=== PATIENT | female | born 1990 | race Caucasian/White ===

== ENCOUNTER 2017-09-25 15:41 | Emergency (ER) | payer OTHER ==
--- NOTE | 2017-09-25 16:06 | ED.PDOC ---
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 She had some abdominal pain associated with the bleeding that has since resolved. She said there was a quarter size clot in the blood. No other complaints. She had no complications with her first . Timing/Duration: 1 hour Severity: mild Improving Factors: nothing Worsening Factors: nothing Associated Symptoms: denies symptoms Allergies/Adverse Reactions: Allergies NO KNOWN ALLERGY Allergy (Verified 09/25/17 16:00) Review of Systems - Review of Systems Constitutional: States: no symptoms reported EENTM: States: no symptoms reported Respiratory: States: no symptoms reported Cardiology: States: no symptoms reported Gastrointestinal/Abdominal: States: no symptoms reported Genitourinary: States: see HPI Musculoskeletal: States: no symptoms reported Skin: States: no symptoms reported Neurological: States: no symptoms reported Endocrine: States: no symptoms reported Hematologic/Lymphatic: States: no symptoms reported Past Medical History (General) - Patient Medical History Hx Asthma: No Hx of COPD: No Hx Cardiac Disorders: No Hx Congestive Heart Failure: No Hx Hypertension: No Surgical History: no surgical history Physical Exam - Physical Exam General Appearance: Alert Ears, Nose, Throat: normal ENT inspection Neck: non-tender, full range of motion, supple Respiratory: lungs clear Cardiovascular/Chest: normal peripheral pulses, regular rate, rhythm, no edema Gastrointestinal/Abdominal: normal bowel sounds, non tender, soft, other - Gravid, uterus 25 cm above pelvic symphysis Back Exam: no CVA tenderness Extremity: normal range of motion, non-tender, normal inspection 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 Dr. Majano in [place] is the patient's OB. I spoke with Dr. Patel, who is the OB brand communications manager for Dr. Majano's group. The instructions that she gave were vaginal rest and light activity with follow up at her scheduled appointment in one week. Care instructions were given. Questions were elicited and answered. Patient voiced understanding and agreement with the plan. Departure - Departure Clinical Impression: Vaginal bleeding in Disposition: Discharge to Home or Self Care Condition: Good Departure Forms: ED Discharge - Pt. Copy, Patient Portal Self Enrollment Diet: resume usual diet Activity: no exercise, other - Light activity. Vaginal rest. Additional Instructions: Engage only in light activity. Vaginal rest. Return to the E.R. pain and bleeding happen again. Go to your scheduled appointment with your OB on Monday.
[2017-09-25 16:33] VITALS: TEMP 99.3; O2SAT 97
[2017-09-25 17:06] VITALS: BP 104/71
--- NOTE | 2017-09-25 17:19 | US ---
EXAM DESCRIPTION: OB , limited CLINICAL HISTORY: 27 years Female vaginal bleeding COMPARISON: None. TECHNIQUE: Transabdominal real-time, nicholson scale imaging performed to evaluate the pelvis. FINDINGS: There is a single viable intrauterine in breech presentation. movement is visualized and there are positive cardiac heart tones at 158 bpm. BPD 5.9 cm 24 weeks one day. HC 22 cm 24 weeks zero days. A.c. 20.3 cm 25 weeks zero days. FL 4.08 cm 23 weeks two days. Estimated composite gestational age is 24 weeks one day. Estimated due date is 01/14/2018. Estimated weight 668.3 g which is at the 49th percentile. Placenta anterior. Amniotic fluid appears within normal limits. IMPRESSION: Single viable intrauterine measuring 24 weeks and one day. Electronically signed by: Royr Hearn MD 09/25/2017 5:18 PM CDT
== END 2017-09-25 17:00 | disposition home or self-care (01) ==
LOC: ER 15:41
DX: O46.92 Antepartum hemorrhage, unspecified, second trimester (principal); Z3A.24 24 weeks gestation of pregnancy